=== PATIENT | male | born 1950 ===

== ENCOUNTER 2021-10-25 09:55 | Outpatient (CLI) | payer OTHER ==
[2021-10-25] MEDS ORDERED: LOTENSIN20 MG PO (12:58)
[2021-10-25] MEDS ORDERED: HYDRODIURIL12.5 MG PO (12:58)
[2021-10-25] MEDS ORDERED: NORVASC10 MG PO (12:58)
== END 2021-10-25 13:20 | disposition home or self-care (01) ==
LOC: LAB 09:55
PROVIDERS: ATTEND Surgery
DX: D68.8 Other specified coagulation defects (principal); D12.2 Benign neoplasm of ascending colon; D12.0 Benign neoplasm of cecum; K57.30 Diverticulosis of large intestine without perforation or abscess without bleeding

== ENCOUNTER 2021-10-25 10:00 | Inpatient (IN) | payer OTHER ==
[~2021-10-25] VITALS: Ht 177.8 cm; Wt 83.0 kg
[2021-10-25] MEDS ORDERED: LOTENSIN20 MG PO (12:58)
[2021-10-25] MEDS ORDERED: HYDRODIURIL12.5 MG PO (12:58)
[2021-10-25] MEDS ORDERED: NORVASC10 MG PO (12:58)
[2021-11-30] MEDS ORDERED: PERCOCET 5-3251 EACH PO (16:52)
== END 2021-11-30 18:37 | disposition home or self-care (01) | DRG 331 ==
LOC: EDUNIT# 10:00 → SURH 10-29 07:00 → O/R 11-26 06:12 → SURG 11-26 06:12
PROVIDERS: ADMIT Surgery; ATTEND Surgery
PROC: 07BB4ZZ Excision of Mesenteric Lymphatic, Percutaneous Endoscopic Approach (ICD-10-PCS; 2021-11-26)
PROC: 0DTF4ZZ Resection of Right Large Intestine, Percutaneous Endoscopic Approach (ICD-10-PCS; principal; 2021-11-26 11:15)
DX: D12.2 Benign neoplasm of ascending colon (principal); K57.30 Diverticulosis of large intestine without perforation or abscess without bleeding; R59.0 Localized enlarged lymph nodes; I10 Essential (primary) hypertension